=== PATIENT | female | born 1995 | race Caucasian/White ===

== ENCOUNTER 2017-07-18 10:27 | Outpatient (CLI) | payer OTHER ==
[2017-07-18 11:30] VITALS: BP 112/72
== END 2017-07-18 11:32 | disposition home or self-care (01) ==
LOC: WFO 10:27 → FBP 10:31 → WFO 11:32
PROVIDERS: ATTEND Obstetrics & Gynecology
DX: O48.0 Post-term pregnancy (principal); Z3A.40 40 weeks gestation of pregnancy
CPT/HCPCS: 59025

== ENCOUNTER 2019-04-05 08:00 | Outpatient (CLI) | payer OTHER ==
[2019-04-05 22:22] LABS: TRICHOMONAS VAGINALIS DNA NEGATIVE (NEGATIVE)
== END 2019-04-05 23:59 | disposition home or self-care (01) ==
LOC: LAB.R 08:00
PROVIDERS: ATTEND Obstetrics & Gynecology
DX: Z36.89 Encounter for other specified antenatal screening (principal)
CPT/HCPCS: 87491; 87591; 87661; 87797

== ENCOUNTER 2019-04-12 07:00 | Outpatient (CLI) | payer OTHER | END 2019-04-12 23:59 | disposition home or self-care (01) | LOC: LAB.R 07:00 | PROVIDERS: ATTEND Obstetrics & Gynecology | DX: O23.43 Unspecified infection of urinary tract in pregnancy, third trimester (principal); Z3A.00 Weeks of gestation of pregnancy not specified | CPT/HCPCS: 87086 ==

== ENCOUNTER 2019-05-10 18:26 | Inpatient (IN) | payer OTHER ==
--- NOTE | 2019-05-10 19:49 | HISTORY & PHYSICAL EXAMINATION ---
Admit History - Visit Reason Visit Reason: Other (24yo at 40 6/7 weeks by LMP c/w first trimester US O+ GBS neg on 04/05 who presents for post date IOL. Not feeling contractions. No fluid leak or bleeding. Normal activity. No n/v/f/c or dysuria. complicated by borderline HTN (130/85), iron deficiency/restless leg syndrome and maternal obesity.) - Parity: 1 Premature: 0 : 0 Care: positive: [facility] Risk/History: positive: Labor induction Complications This : positive: None Smoking Status: Never smoker - Mother's Labs Mother's Blood Type: positive: O Mother's RH: positive: Positive GBS: positive: Other (GBS neg on 04/05, now ; will treat as unknown according to guidelines) Rubella Status: positive: Immune (Other labs: HIV/Hep B&C/RPR NR Rubella/varicella immune Glucola 115 GC/chlam neg PAP normal. Tdap and flu vax given 02/19/19 and 02/08/19) Meds/Allgy - Home Medications Home Medications: Ambulatory Orders Medication Instructions Recorded Confirmed Calcium Carbonate [Calcium] 600 mg PO DAILY 05/10/19 05/10/19 Magnesium 250 mg PO DAILY 05/10/19 05/10/19 Pnv No.95/Ferrous Fum/Folic AC 1 tab PO DAILY 05/10/19 05/10/19 [ Caplet] - Allergies Allergies/Adverse Reactions: Allergies Allergy/AdvReac Type Severity Reaction Status Date / Time Sulfa (Sulfonamide Allergy Rash Verified 07/18/17 10:52 Antibiotics) Review of Systems - Constitutional Constitutional: reports: Fatigue (And as noted in HPI) Physical - Abdominal Exam Vital Signs: 128/77, 103, 100% sat RA Afebrile Contraction Frequency (min/apart): q2-4 Contraction Intensity: positive: Mild Uterine Resting Tone: positive: Soft - Monitoring Heart Rate Baseline: 150 Strip Review: positive: Category I - Presentation Presentation: positive: Vertex (By scan) - Vaginal Exam Membranes: positive: Membranes intact Dilation (in cm): 2-3 Station: positive: -2 Cervical Position: positive: Posterior - Speculum Exam Speculum Exam Performed: positive: No Plan for Labor - Plan For Labor Plan for Labor: 24yo at 40 6/7 weeks, O+, GBS unknown () admitted for IOL. Plan IV hydration to space contractions, then start with miso and cervical balloon. Transition to pit as indicated EFW 3200gm CBC, T&S Planning epidural and Mirena Physical Exam Height: 5 ft 4 in Heart: regular rate and rhythm, murmur (2/6 systolic along LSB) Lungs: clear bilaterally Abdomen: soft (Gravid, S=D) Extremities: no edema or clubbing Neurologic: intact
[2019-05-10] MEDS ORDERED: LEVONORGESTREL 20 MCG/24H IUD IY ONE ×2 (20:06→20:39)
[2019-05-10] MEDS ORDERED: ONDANSETRON 4 MG/2 ML VIAL IVP PRN ×2 (20:09→23:07)
[2019-05-10] MEDS ORDERED: fentaNYL 100 MCG/2 ML VIAL IVP PRN (20:09)
[2019-05-10] MEDS ORDERED: SODIUM CHLORIDE FLUSH 0.9% 10 ML SYRINGE IVP PRN (20:09)
[2019-05-10] MEDS ORDERED: PROMETHAZINE INJ 25 MG in SODIUM CHLORIDE 0.9% 50 ML IV PRN (20:13)
[2019-05-10 20:20] LABS: BASOPHILS % (AUTO) 0.3 %; EOSINOPHILS % (AUTO) 0.4 %; HGB - HEMOGLOBIN 11.4 g/dL (12.0-16.0); LYMPHOCYTES % (AUTO) 18.7 %; MEAN CORPUSCULAR HEMOGLOBIN 25.7 pg (27.0-31.0); MEAN CORPUSCULAR HGB CONC 31.5 g/dL (32.0-36.0); MEAN CORPUSCULAR VOLUME 81.7 fL (81.0-99.0); MEAN PLATELET VOLUME 11.4 fL (7.9-10.8); MONOCYTES # (AUTO) 0.7 10^3/uL (0.0-1.0); NEUTROPHILS # (AUTO) 7.6 10^3/uL (1.5-6.6); NEUTROPHILS % (AUTO) 72.1 %; PLT - PLATELET COUNT 289 10^3/uL (130-450); RED BLOOD COUNT 4.43 10^6/uL (4.20-5.40); RED CELL DISTRIBUTION WIDTH 15.5 % (12.0-15.0); WHITE BLOOD COUNT 10.6 x10^3/uL (4.8-10.8)
[2019-05-10] MEDS ORDERED: ZOLPIDEM 5 MG TABLET PO PRN (20:23)
[2019-05-10] MEDS ORDERED: diphenhydrAMINE 25 MG CAPSULE PO PRN (20:25)
--- NOTE | 2019-05-10 20:27 | PROVIDER PROGRESS NOTE ---
Subjective - Prog Note Date Prog Note Date: 05/10/19 Prog Note Time: 20:25 - Subjective Subjective: Cervical balloon placed with 60 and 40cc in inner and outer balloons resp. Contractions spaced. Will start miso Labs reviewed, normal Objective - Lab Results Fish Bones: 05/10/19 19:45 Other Labs: Lab Results x24hrs 05/10/19 Range/Units 19:45 WBC 10.6 (4.8-10.8) x10^3/uL RBC 4.43 (4.20-5.40) 10^6/uL Hgb 11.4 L (12.0-16.0) g/dL Hct 36.2 L (37.0-47.0) % MCV 81.7 (81.0-99.0) fL MCH 25.7 L (27.0-31.0) pg MCHC 31.5 L (32.0-36.0) g/dL RDW 15.5 H (12.0-15.0) % Plt Count 289 (130-450) 10^3/uL MPV 11.4 H (7.9-10.8) fL Neut # (Auto) 7.6 H (1.5-6.6) 10^3/uL Lymph # (Auto) 2.0 (1.5-3.5) 10^3/uL [place] # (Auto) 0.7 (0.0-1.0) 10^3/uL Eos # (Auto) 0.0 (0.0-0.7) 10^3/uL Baso # (Auto) 0.0 (0.0-0.1) 10^3/uL Absolute Nucleated RBC 0.00 x10^3/uL Nucleated RBC % 0.0 /100WBC
[2019-05-10] MEDS ORDERED: OXYTOCIN/DEXTROSE 5 % 30 UNIT/500 ML BAG IV SCH (21:00)
[2019-05-10] MEDS ORDERED: LACTATED RINGERS 1,000 ML IV SCH (21:00)
[2019-05-10] MEDS ORDERED: miSOPROStoL 100 MCG TABLET PO SCH (21:00)
[2019-05-10] MEDS ORDERED: ROPIVACAINE 0.2% 200 MG/100 ML BAG EP ONE (22:20)
[2019-05-10] MEDS ORDERED: ROPIVACAINE 0.2% 200 MG/100 ML BAG EP PRN (23:07)
[2019-05-10] MEDS ORDERED: NALBUPHINE 10 MG/ML AMP IVP PRN (23:07)
[2019-05-10] MEDS ORDERED: NALOXONE 0.4 MG/ML VIAL IVP PRN (23:07)
--- NOTE | 2019-05-10 23:37 | ANESTHESIA ---
Pre-Anesthesia VS, & Labs - Diagnosis Active labor - Procedure vaginal delivery Height 5 ft 4 in Weight (kg) 88.904 kg - NPO Other (Clear liquids) - Is Patient ?: Yes - Lab Results Current Lab Results: Laboratory Tests 05/10/19 19:45: Blood Type O POSITIVE, Antibody Screen NEGATIVE 05/10/19 19:45: WBC 10.6, RBC 4.43, Hgb 11.4 L, Hct 36.2 L, MCV 81.7, MCH 25.7 L , MCHC 31.5 L, RDW 15.5 H, Plt Count 289, MPV 11.4 H, Neut # (Auto) 7.6 H, Lymph # (Auto) 2.0, [place] # (Auto) 0.7, Eos # (Auto) 0.0, Baso # (Auto) 0.0, Absolute Nucleated RBC 0.00, Nucleated RBC % 0.0 Fish Bones: 05/10/19 19:45 Home Medications and Allergies Home Medications: Ambulatory Orders Calcium Carbonate [Calcium] 600 mg PO DAILY 05/10/19 Magnesium 250 mg PO DAILY 05/10/19 Pnv No.95/Ferrous Fum/Folic AC [ Caplet] 1 tab PO DAILY 05/10/19 Active Medications Acetaminophen (Tylenol) 650 mg PO Q6H PRN PRN Reason: PAIN Diphenhydramine HCl (Benadryl) 25 mg PO QPM PRN PRN Reason: Insomnia Fentanyl (Fentanyl) 50 mcg IVP Q1H PRN PRN Reason: PAIN Last Admin: 05/10/19 20:52 Dose: 50 mcg OXYTOCIN/DEXTROSE 5 % (Pitocin/Dextrose 5%) 30 unit in 500 mls @ 2 mls/hr IV TITR CELIA; Protocol Lactated Ringer's (Lr) 1,000 mls @ 200 mls/hr IV .Q5H CELIA Promethazine HCl 25 mg/ Sodium (Chloride) 51 mls @ 100 mls/hr IV Q6H PRN PRN Reason: Nausea / Vomiting Misoprostol (Cytotec) 50 mcg PO QID CELIA Last Admin: 05/10/19 20:46 Dose: 50 mcg Ondansetron HCl (Zofran Inj) 4 mg IVP Q4H PRN PRN Reason: Nausea / Vomiting Sodium Chloride (Normal Saline Flush 0.9%) 10 ml IVP PRN PRN PRN Reason: NEEDED PER PROVIDER ORDERS Sodium Chloride (Normal Saline Flush 0.9%) 10 ml IVP 0100,0900,1700 CELIA Zolpidem Tartrate (Ambien) 5 mg PO QPM PRN PRN Reason: Insomnia Calcium Carbonate [Calcium] 600 mg PO DAILY 05/10/19 Magnesium 250 mg PO DAILY 05/10/19 Pnv No.95/Ferrous Fum/Folic AC [ Caplet] 1 tab PO DAILY 05/10/19 Allergies/Adverse Reactions: Allergies Allergy/AdvReac Type Severity Reaction Status Date / Time Sulfa (Sulfonamide Allergy Rash Verified 07/18/17 10:52 Antibiotics) Anes History & Medical History - Anesthetic History Family history of Anesthesia Complications: Denies Family history of Malignant Hyperthermia: Denies - Medical History Cardiovascular: reports: None Pulmonary: reports: None Gastrointestinal: reports: None Urinary: reports: None Neuro: reports: None Musculoskeletal: reports: None Endocrine/Autoimmune: reports: None Blood Disorders: reports: None Skin: reports: None Smoking Status: Never smoker Psychosocial: reports: No issues indicated - Obstetrical History : 2 Parity: 1 Events: positive: Labor induction Complications: positive: None Exam General: Alert, Oriented x3, Cooperative, No acute distress Dental: WNL Mouth Openin Fingerbreadth Neck Mobility: Normal Mallampati classification: II Thyromental Distance: greater than 6 cm Mental/Cognitive Status: Alert/Oriented X3, Normal for patient Plan Anesthesia Type: Epidural Consent for Procedure(s) Verified and Reviewed: Yes Code Status: Attempt Resuscitation ASA classification: 2-Mild systemic disease Is this case an emergency?: No
[2019-05-11] MEDS ORDERED: SODIUM CHLORIDE FLUSH 0.9% 10 ML SYRINGE IVP SCH (01:00)
[2019-05-11] MEDS ORDERED: miSOPROStoL 200 MCG TABLET ONE (03:28)
[2019-05-11] MEDS ORDERED: OXYTOCIN/DEXTROSE 5 % 30 UNIT/500 ML BAG IV ONE (03:29)
[2019-05-11] MEDS: OXYTOCIN/DEXTROSE 5 % 30 UNIT/500 ML BAG IV PRN ×2 (05:02→07:45)
--- NOTE | 2019-05-11 05:17 | PROVIDER PROGRESS NOTE ---
Subjective - Prog Note Date Prog Note Date: 05/11/19 Prog Note Time: 03:15 - Subjective Subjective: Epidural in place. Balloon out, SROM clear. Fully dilated/+2 VSS afeb Category 1 tracing Will start pushing Objective - Lab Results Fish Bones: 05/10/19 19:45 Other Labs: Lab Results x24hrs 05/10/19 05/10/19 Range/Units 19:45 19:45 WBC 10.6 (4.8-10.8) x10^3/uL RBC 4.43 (4.20-5.40) 10^6/uL Hgb 11.4 L (12.0-16.0) g/dL Hct 36.2 L (37.0-47.0) % MCV 81.7 (81.0-99.0) fL MCH 25.7 L (27.0-31.0) pg MCHC 31.5 L (32.0-36.0) g/dL RDW 15.5 H (12.0-15.0) % Plt Count 289 (130-450) 10^3/uL MPV 11.4 H (7.9-10.8) fL Neut # (Auto) 7.6 H (1.5-6.6) 10^3/uL Lymph # (Auto) 2.0 (1.5-3.5) 10^3/uL [place] # (Auto) 0.7 (0.0-1.0) 10^3/uL Eos # (Auto) 0.0 (0.0-0.7) 10^3/uL Baso # (Auto) 0.0 (0.0-0.1) 10^3/uL Absolute Nucleated RBC 0.00 x10^3/uL Nucleated RBC % 0.0 /100WBC Blood Type O POSITIVE Antibody Screen NEGATIVE
--- NOTE | 2019-05-11 05:23 | DELIVERY NOTE ---
Delivery Note - Labor Labor: positive: Augmented by oxytocin - Delivery Method Delivery Method: positive: Spontaneous vaginal delivery - Cervical Ripening Method Cervical Ripening Method: positive: Balloon device, Misoprostil - Presentation Presentation: positive: Vertex, JCARLOS - left occiput anterior - Nuchal Cord Nuchal Cord: positive: None - Anesthetic Anesthetic Type: - Amniotic Fluid Description Amniotic Fluid Description: positive: Clear - Episiotomy Type Episiotomy Type: positive: None - Laceration Laceration: positive: None ( of 3410gm female infant at 05:02 apgars 9/9 from JCARLOS. Spontaneous, vigorous cry. Placenta delivered intact with traction at 05:06. Normally inserted 3 vessel cord. No lacerations. EBL 100cc Mirena placed. Lot [id number] exp June 2021)
[2019-05-11] MEDS ORDERED: HYDROcod/ACETAM 5/325 MG TABLET PO PRN (05:24)
[2019-05-11] MEDS ORDERED: HYDROCORTISONE 1% CREAM 28 GM TUBE PR PRN (05:24)
[2019-05-11] MEDS ORDERED: WITCH HAZEL/GLYCERIN 1 PAD TOP PRN (05:24)
[2019-05-11] MEDS: IBUPROFEN 600 MG TABLET PO PRN ×3 (07:46→20:37)
[2019-05-11] MEDS ORDERED: IRON DEXTRAN 1,000 MG in SODIUM CHLORIDE 0.9% 250 ML IV ONE (10:00)
--- NOTE | 2019-05-11 14:04 | PROVIDER PROGRESS NOTE ---
Subjective - Prog Note Date Prog Note Date: 05/11/19 Prog Note Time: 13:58 - Subjective Subjective: Feeling well. Ambulating, tolerating regular diet. Voiding. Minimal lochia VSS afeb Abd soft, non-tender. Fundus firm below umbilicus A/P Stable. IV iron infusing. Continue routine care. Objective - Vital Signs/Intake & Output Vital Signs: Vital Signs x48h Temp Pulse Resp BP Pulse Ox 05/11/19 10:30 97.9 F 86 18 132/60 H 99 05/11/19 08:45 98.8 F 97 18 137/69 H 98 05/11/19 07:45 95 18 121/70 05/11/19 07:15 96 113/55 L 05/11/19 07:00 94 16 114/66 05/11/19 06:45 84 16 115/58 L 05/11/19 06:30 85 16 112/73 05/11/19 06:15 103 H 16 108/57 L 05/11/19 06:00 95 16 125/61 Intake & Output: Intake & Output 05/08/19 05/09/19 05/10/19 05/11/19 23:59 23:59 23:59 23:59 Intake Total 500 Output Total 1200 Balance -700 - Lab Results Fish Bones: 05/10/19 19:45 Other Labs: Lab Results x24hrs 05/10/19 05/10/19 Range/Units 19:45 19:45 WBC 10.6 (4.8-10.8) x10^3/uL RBC 4.43 (4.20-5.40) 10^6/uL Hgb 11.4 L (12.0-16.0) g/dL Hct 36.2 L (37.0-47.0) % MCV 81.7 (81.0-99.0) fL MCH 25.7 L (27.0-31.0) pg MCHC 31.5 L (32.0-36.0) g/dL RDW 15.5 H (12.0-15.0) % Plt Count 289 (130-450) 10^3/uL MPV 11.4 H (7.9-10.8) fL Neut # (Auto) 7.6 H (1.5-6.6) 10^3/uL Lymph # (Auto) 2.0 (1.5-3.5) 10^3/uL [place] # (Auto) 0.7 (0.0-1.0) 10^3/uL Eos # (Auto) 0.0 (0.0-0.7) 10^3/uL Baso # (Auto) 0.0 (0.0-0.1) 10^3/uL Absolute Nucleated RBC 0.00 x10^3/uL Nucleated RBC % 0.0 /100WBC Blood Type O POSITIVE Antibody Screen NEGATIVE
[2019-05-11] MEDS: DOCUSATE SODIUM 100 MG CAPSULE PO SCH ×2 (14:44→20:36)
[2019-05-11] MEDS: ACETAMINOPHEN 325 MG TABLET PO PRN (20:37)
[2019-05-11] MEDS ORDERED: MAGNESIUM CITRATE 296 ML BOTTLE PO PRN (21:16)
[2019-05-11] MEDS ORDERED: MAGNESIUM HYDROXIDE 2,400 MG/30 ML UDC PO PRN (21:16)
[2019-05-12] MEDS: IBUPROFEN 600 MG TABLET PO PRN (07:57)
[2019-05-12] MEDS: ACETAMINOPHEN 325 MG TABLET PO PRN (07:57)
[2019-05-12] MEDS: DOCUSATE SODIUM 100 MG CAPSULE PO SCH (07:57)
--- NOTE | 2019-05-12 11:24 | PROVIDER PROGRESS NOTE ---
Subjective - Prog Note Date Prog Note Date: 05/12/19 Prog Note Time: 11:21 - Subjective Subjective: PPD 1 Feeling well. Minimal lochia, ambulating, tolerating reg diet. going well. VSS afeb Abd soft, non-tender. Fundus firm at umbilicus A/P Stable Plan DC today. F/U in 1-2 weeks Objective - Vital Signs/Intake & Output Vital Signs: Vital Signs x48h Temp Pulse Resp BP Pulse Ox 05/12/19 08:05 97.3 F L 79 17 128/85 H 99 05/12/19 05:33 83 16 126/53 L 98 Intake & Output: Intake & Output 05/09/19 05/10/19 05/11/19 05/12/19 23:59 23:59 23:59 23:59 Intake Total 1270 Output Total 1200 Balance 70 - Lab Results Fish Bones: 05/10/19 19:45
--- NOTE | 2019-05-12 11:27 | DISCHARGE SUMMARY ---
Discharge Summary Admit Date: 05/10/19 Discharge Date: 05/12/19 Discharging Provider: Taisha Bright MD Code Status: Attempt Resuscitation Condition at Discharge: Good Discharge Disposition: 01 Home, Self Care - DIAGNOSES Admission Diagnoses: Post date Maternal obesity Restless leg syndrome/iron deficiency Borderline hypertension Discharge Diagnoses with Status of Each Condition: S/P iron infusion - HPI History of Present Illness: 24yo now P2 at 40 6/7 weeks by LMP c/w first trimester US O+ GBS neg on 04/05 who presented for post date IOL. Not feeling contractions. No fluid leak or bleeding. Normal activity. No n/v/f/c or dysuria. complicated by borderline HTN (130/85), iron deficiency/restless leg syndrome and maternal obesity. - HOSPITAL COURSE Hospital Course: Induction was initiated with misoprostol and a cervical balloon. She progressed to full dilation with only a single dose of miso. She required pitocin during t he second stage. She had of 3410gm female on 05/11 apgars 9/9 from JCARLOS. Spontaneous, vigorous cry. Placenta delivered intact with traction at 05:06. Normally inserted 3 vessel cord. No lacerations. EBL 100cc Mirena placed. Lot [id number] exp June 2021 She was given Iron dextran for treatment of restless leg and iron deficiency. Her course was uncomplicated. She was DC'd on PPD 1 with f/u in 1-2 weeks. - ALLERGIES Allergies/Adverse Reactions: Allergies Allergy/AdvReac Type Severity Reaction Status Date / Time Sulfa (Sulfonamide Allergy Rash Verified 07/18/17 10:52 Antibiotics) - MEDICATIONS Home Medications: Ambulatory Orders Medication Instructions Recorded Confirmed Calcium Carbonate [Calcium] 600 mg PO DAILY 05/10/19 05/10/19 Magnesium 250 mg PO DAILY 05/10/19 05/10/19 Pnv No.95/Ferrous Fum/Folic AC 1 tab PO DAILY 05/10/19 05/10/19 [ Caplet] - PHYSICAL EXAM AT DISCHARGE General Appearance: positive: No acute distress Respiratory: positive: Chest non-tender, No respiratory distress Cardiovascular: positive: Regular rate & rhythm Abdomen: positive: Non-tender (Fundus firm at umbilicus) Skin: positive: Color nml, No rash, Warm, Dry Extremities: positive: Non-tender, No pedal edema - LABS Result Diagrams: 05/10/19 19:45 - FOLLOW UP Follow Up: 1-2 weeks
--- NOTE | 2019-05-12 11:36 | Discharge Plan ---
Discharge Plan Problem Reviewed?: Yes Disposition: Home, Self Care Condition: Good Diet: Regular Activity Restrictions: pelvic rest Shower Restrictions: No Driving Restrictions: No No Smoking: If you smoke, Please STOP! Call for help. Follow-up with: CHUNG SCHAFFER MD, PHD [Physician No Access] -
[2019-05-12 11:56] VITALS: BP 128/68
--- NOTE | 2019-05-12 15:47 | Labor Flowsheet ---
Labor Flowsheet Datetime Report Generated by CPN: 05/12/2019 15:47 Datetime: 05/12/2019 11:53 Pulse: 80 SpO2 (%): 98 Datetime: 05/12/2019 11:52 VITAL SIGNS NBP Sys/Rose/Mean (mmHg): 128 : 68 : 80 Datetime: 05/11/2019 07:11 PAIN Pain Scale: 0 Datetime: 05/11/2019 06:59 Stage of : Recovery Respirations: 16 Datetime: 05/11/2019 06:44 Pain Relief Measures: Comfort Measures Pain Assessment Comments: Pt denies wanting anything for pain control at this time Datetime: 05/11/2019 05:45 Membranes Ruptured Date/Time: 05/11/2019 03:14 Datetime: 05/11/2019 05:15 Temperature Route: Oral Datetime: 05/11/2019 05:09 Stage 2 Comments: Mirena IUD placed by provider Datetime: 05/11/2019 04:59 UTERINE ACTIVITY Monitor Mode: External Frequency (min): 1.5-2 Duration (sec): 60-80 ASSESSMENT A Monitor Mode: Telemetry FHR Baseline Rate : 125 Variability: Moderate 6-25 bpm Accelerations: 15X15 Decelerations: Early Category: Category I STAGE 2 Pushing: Coached on Pushing Pushing Position: Pushing with Contractions; Pushing Lithotomy Pushing Progress: Descent with Pushing; Presenting Part Visible; with Pushing; Pushing Eff ectively with Contractions LaborFlag: Labor Datetime: 05/11/2019 03:27 Patient Care Comments: Gallegos removed for delivery. 400cc clear yellow urine emptied from gallegos Datetime: 05/11/2019 03:25 Provider Reviewed Strip: Yes COMMUNICATION Communication: Provider at Bedside Communication Comments: Dr. Bright in room Datetime: 05/11/2019 03:20 Notification Reason: Status Update Datetime: 05/11/2019 03:15 Medication Comments: Fentanyl dose held due to pt complete status. Phenergen continues to infuse Datetime: 05/11/2019 03:14 Temperature (C): 36.6 VAGINAL EXAM Dilatation (cm): 10.0 Effacement (%): 100 Station: -1 Exam by: MOLINA Kidd and Christine Freeman RN Membrane Status: Ruptured Membranes Rupture Method: Spontaneous Amniotic Fluid Color: Clear Amniotic Fluid Amount: Moderate Amniotic Fluid Odor: Normal Vaginal Bleeding: Normal Show Cervix, Consistency: Soft MEDICATIONS Antiemetics/Antacids: Phenergan (mg) @ 25 Datetime: 05/11/2019 01:39 MATERNAL ASSESSMENT Level of Consciousness: Fully Conscious Headache: Denies Nausea/Vomiting: Denies PATIENT CARE IV/Blood Work: IV Infusing per Order Patient Position/Activity: Left Tilt; Semi-Fowlers Anesthesia Level Check: T9 Datetime: 05/11/2019 00:36 Monitor Interventions for FHR: Ultrasound Adjusted Datetime: 05/10/2019 23:42 I/O Interventions: Gallegos Cath Inserted Datetime: 05/10/2019 22:55 Epidural Procedure Other: Pump Started Datetime: 05/10/2019 22:52 Anesthesia Comments: pt lying on back Datetime: 05/10/2019 22:49 Epidural Procedure: Loading Dose Datetime: 05/10/2019 22:41 Pain Coping: Breathing Through Contractions Datetime: 05/10/2019 22:38 PROCEDURE TIME OUT Procedure Verify: Correct Patient Identity; Correct Side and Site are Marked; Accurate Procedure Co nsent Form; Agreement on Procedure to be Done; Correct Patient Position; Addressed Need to Administer Antibiotics or Fluids for Irrigation; Safety Precautions Based on Patient History or Medication Use ANESTHESIA Anesthesia Plans: Epidural Epidural Positioning: Sitting Datetime: 05/10/2019 22:29 Comments: Difficulty tracing FHR at times due to maternal positioning during epidural placement Datetime: 05/10/2019 21:28 Monitor Interventions for UA: [place] Adjusted Datetime: 05/10/2019 20:50 Cervical Ripening Agents: Gallegos Balloon; Cytotec @
== END 2019-05-12 15:30 | disposition home or self-care (01) | DRG 807 ==
LOC: WFO 18:26 → FBP 18:30 → WFO 20:08 → FBP 20:09
PROVIDERS: ADMIT Obstetrics & Gynecology; ATTEND Obstetrics & Gynecology
PROC: 0U7C7ZZ Dilation of Cervix, Via Natural or Artificial Opening (ICD-10-PCS; 2019-05-10)
PROC: 10E0XZZ Delivery of Products of Conception, External Approach (ICD-10-PCS; principal; 2019-05-11)
PROC: 0UH97HZ Insertion of Contraceptive Device into Uterus, Via Natural or Artificial Opening (ICD-10-PCS; 2019-05-11)
DX: O48.0 Post-term pregnancy (principal); Z37.0 Single live birth; O99.02 Anemia complicating childbirth; D50.9 Iron deficiency anemia, unspecified; O99.214 Obesity complicating childbirth; E66.9 Obesity, unspecified; O75.89 Other specified complications of labor and delivery; R03.0 Elevated blood-pressure reading, without diagnosis of hypertension; G25.81 Restless legs syndrome; Z3A.40 40 weeks gestation of pregnancy; Z30.8 Encounter for other contraceptive management
CPT/HCPCS: 85025; 86850; 86900; 86901; A9270; J1750; J7120; J7298

== ENCOUNTER 2019-06-04 19:07 | Outpatient (CLI) | payer OTHER ==
--- NOTE | 2019-06-06 07:32 | Ultrasound Report ---
Reason: IUD SURVEILLANCE Procedure Date: 06/04/2019 Accession Number: [id number] / [id number] Procedure: US - Pelvic w/Transvaginal CPT Code: Final Report FULL RESULT: EXAM: PELVIC ULTRASOUND EXAM DATE: 06/04/2019 08:31 PM. CLINICAL HISTORY: IUD SURVEILLANCE. COMPARISON: None. TECHNIQUE: Realtime transabdominal pelvic scan performed to identify the uterus and adnexa and as an overview of other pelvic structures, followed by transvaginal scan to provide greater detail of the uterus and adnexa, with static image documentation. FINDINGS: Uterus: 9.5 x 5.1 x 7.7 cm, volume 194.9 cc. Anteverted position. Normal overall size and echotexture. Masses: None. Endometrium: 7 mm. Intrauterine device visualized within endometrial canal. Cervix: Trace endocervical fluid. Echogenic linear structure in cervix, possibly IUD strings. Otherwise unremarkable cervix. Right Ovary: 2.8 x 1.4 x 2.5 cm, volume 5.2 cc. Normal echotexture and blood flow. Left Ovary: 2.1 x 2.6 x 3.9 cm, volume 11.1 cc. Normal echotexture and blood flow. Free Fluid: None. Other: None. IMPRESSION: 1. IUD in endometrial canal. Positioning appears appropriate although borders are somewhat difficult to delineate. 2. Echogenic linear structures in cervix, possibly strings of IUD. Correlate clinically. RADIA
== END 2019-06-04 19:08 | disposition home or self-care (01) ==
LOC: DI 19:07
PROVIDERS: ATTEND Obstetrics & Gynecology
DX: Z30.431 Encounter for routine checking of intrauterine contraceptive device (principal)
CPT/HCPCS: 76830; 76856